=== PATIENT | female | born 1945 | race Caucasian/White ===

== ENCOUNTER → 2017-03-20 | Outpatient (CLI) | payer OTHER | LOC: FIMAGING 09:50 | PROVIDERS: ATTEND Physical Medicine & Rehabilitation | DX: M54.12 Radiculopathy, cervical region (principal); M50.30 Other cervical disc degeneration, unspecified cervical region; M48.02 Spinal stenosis, cervical region; G95.20 Unspecified cord compression; M25.78 Osteophyte, vertebrae ==

== ENCOUNTER → 2017-03-31 | Outpatient (CLI) | payer OTHER | LOC: BMCIMAGING 13:30 | PROVIDERS: ATTEND Internal Medicine Endocrinology, Diabetes & Metabolism | DX: Z13.820 Encounter for screening for osteoporosis (principal); M85.89 Other specified disorders of bone density and structure, multiple sites ==

== ENCOUNTER 2017-05-01 13:58 | Observation (INO) | payer OTHER ==
[2017-05-01] MEDS ORDERED: NS 1,000 ML IV ONE ×2 (15:10→15:43)
--- NOTE | 2017-05-01 15:12 | EDPHY ---
H & P Time Seen by Provider: 05/01/17 14:51 HPI/ROS: CHIEF COMPLAINT: Abdominal pain and diarrhea HISTORY OF PRESENT ILLNESS: Patient was doing well until she woke up at 4:00 a.m. to let the dog out. She developed gas pains and felt sweaty and hot and shortly after developed abdominal pain felt like she was going to be "ripped apart "and had multiple episodes of diarrhea starting at 6:00 a.m.. At 1st it was yellow and light brown and then go more frequent and more severe and she was ended up lying on the floor in the bathroom. Mid morning it started to get bloody and about 30 min prior to my evaluation she had another just completely bloody bowel movement. REVIEW OF SYSTEMS: Eye: no change in vision ENT: no sore throat Cardiac: no chest pain or syncope Pulmonary: no cough or SOB Abdomen: HPI, no abdominal pain now. Musculoskeletal: no back pain Skin: no rash Neuro: no headache Constitutional: no fever : no urinary symptoms A comprehensive 10 point review of systems is otherwise negative aside from elements mentioned in the history of present illness. PAST MEDICAL HISTORY: Breast cancer, hypertension, irritable bowel, sleep apnea. Social history: No alcohol, nonsmoker. No recent thorough travel, no antibiotics. General Appearance: Alert and conversant, cooperative. Eyes: No scleral icterus. ENT, Mouth: dry mucous membranes. Respiratory: Normal respiratory effort, breath sounds equal, lungs are clear to auscultation. Cardiovascular: Regular rate and rhythm. Gastrointestinal: Abdomen is soft and non tender. No external hemorrhoid seen. Neurological: Alert and oriented x3. Normally conversant. Face symmetric, normal movement and sensation in all extremities. Skin: Warm and dry, no rashes. Musculoskeletal: No peripheral edema and no joint swelling. Psychiatric: Not agitated. Emergency Department course/MDM: I-STAT, IV hydration, CT scanning, stool testing. 1544: ascites 100ml, otherwise negative Mao. 1616: Discussed with Addy. Disposition discussed with patient, plan for admit to observation with continued bloody diarrhea in the emergency department in a 71-year-old patient. GI consult if does not resolve or hematocrit drops. Smoking Status: Never smoked Constitutional: Initial Vital Signs Temperature (C) 36.8 C 05/01/17 14:07 Heart Rate 87 05/01/17 14:07 Respiratory Rate 16 05/01/17 14:07 Blood Pressure 123/80 H 05/01/17 14:07 O2 Sat (%) 97 05/01/17 14:07 O2 Delivery Mode Room Air Allergies/Adverse Reactions: codeine Allergy (Intermediate, Verified 05/01/17 17:13) Other-Enter Comments morphine Allergy (Intermediate, Verified 05/01/17 17:13) Itching Sulfa (Sulfonamide Antibiotics) Allergy (Intermediate, Verified 05/01/17 17:13) Other-Enter Comments CONTRAST DYE Allergy (Severe, Uncoded 05/01/17 17:13) Hives Home Medications: Medication Instructions Recorded Amlodipine Besylate [Norvasc] 5 mg PO HS 05/01/17 Aspirin EC [Aspirin EC 325 mg (*)] 650 mg PO DAILY PRN 05/01/17 Aspirin [Aspirin 81mg (*)] 81 mg PO DAILY 05/01/17 Calcium Carbonate [Oyster Shell 500 mg PO DAILY 05/01/17 Calcium 500 mg (*)] Ergocalciferol (Vitamin D2) 2,000 unit PO DAILY 05/01/17 [Vitamin D2] Ibuprofen [Motrin (*)] 400 mg PO Q8 PRN 05/01/17 Inulin/Chromium Picolinate [Fiber 1 each PO DAILY 05/01/17 Gummies] Levothyroxine [Synthroid 25 mcg 25 mcg PO DAILY06 05/01/17 (*)] Lisinopril [Zestril 20 mg (*)] 20 mg PO BID 05/01/17 Meloxicam [Mobic 15 mg] 15 mg PO DAILY 05/01/17 Multivitamins [Multivitamin (*)] 1 each PO DAILY 05/01/17 Nebivolol HCl [Bystolic 5 mg (*)] 5 mg PO DAILY 05/01/17 Omeprazole [Prilosec 20 mg] 20 mg PO DAILY 05/01/17 Simvastatin [Zocor] 40 mg PO HS 05/01/17 Tears/Dextran 70/Hypromellose 1 drop EACHEYE PRN PRN 05/01/17 [Natural Balance Tears (*)] Travoprost Z 0.004% [Travatan Z 1 drops EACHEYE HS 05/01/17 0.004% (*)] Valacyclovir HCl [Valtrex] 1,000 mg PO PRN PRN 05/01/17 Medical Decision Making - Diagnostics EKG Interpretation: 12-lead EKG interpreted by me; official reading is in trace master. My interpretation is sinus rhythm with diffuse nonspecific T-wave flattening rate 68. Imaging Results: Imaging Impressions Abdomen/Pelvis CT 05/01/17 15:29 Impression: 1. Free fluid. This may be exudative from diarrhea. 2. From a noncontrasted standpoint, there is no obvious colitis. No wall thickening, air-fluid level, or distention or obstruction. 3. Renal stones on the right. 4. Gallstones without obstruction. Findings and recommendations discussed with Dr. Son Xavier at 1543 hours on May 01, 2017. Final report concurs with initial preliminary interpretation. Attention: This examination does not use radiographic contrast, and as such, provides only a limited evaluation of the abdomen, pelvis, and retroperitoneum. If there is further clinical suspicion for pathological conditions, a complete CT evaluation of the abdomen and pelvis utilizing intravenous, oral, and rectal contrast should be considered. Differential Diagnosis: Differential considered including but not limited to ischemic colitis, infectious colitis, lower GI bleed, gastroenteritis. - Data Points Laboratory Results: Laboratory Results 05/01/17 15:14 05/01/17 15:14 05/01/17 05/01/17 05/01/17 15:14 15:14 15:11 WBC 10.79 10^3/uL H 10^3/uL (3.80-9.50) RBC 4.63 10^6/uL 10^6/uL (4.18-5.33) Hgb 14.9 g/dL g/dL (12.6-16.3) POC Hgb 14.6 gm/dL gm/dL (12.6-16.3) Hct 40.4 % % (38.0-47.0) POC Hct 43 % % (38-47) MCV 87.3 fL fL (81.5-99.8) MCH 32.2 pg pg (27.9-34.1) MCHC 36.9 g/dL H g/dL (32.4-36.7) RDW 12.9 % % (11.5-15.2) Plt Count 232 10^3/uL 10^3/uL (150-400) MPV 10.3 fL fL (8.7-11.7) Neut % (Auto) 86.9 % H % (39.3-74.2) Lymph % (Auto) 7.5 % L % (15.0-45.0) Marshall % (Auto) 4.7 % % (4.5-13.0) Eos % (Auto) 0.1 % L % (0.6-7.6) Baso % (Auto) 0.4 % % (0.3-1.7) Nucleat RBC Rel Count 0.0 % % (0.0-0.2) Absolute Neuts (auto) 9.38 10^3/uL H 10^3/uL (1.70-6.50) Absolute Lymphs (auto) 0.81 10^3/uL L 10^3/uL (1.00-3.00) Absolute Monos (auto) 0.51 10^3/uL 10^3/uL (0.30-0.80) Absolute Eos (auto) 0.01 10^3/uL L 10^3/uL (0.03-0.40) Absolute Basos (auto) 0.04 10^3/uL 10^3/uL (0.02-0.10) Absolute Nucleated RBC 0.00 10^3/uL 10^3/uL (0-0.01) Immature Gran % 0.4 % % (0.0-1.1) Immature Gran # 0.04 10^3/uL 10^3/uL (0.00-0.10) POC Sodium 142 mEq/L mEq/L (134-144) Sodium 140 mEq/L mEq/L (134-144) POC Potassium 4.1 mEq/L mEq/L (3.3-5.0) Potassium 4.3 mEq/L mEq/L (3.5-5.2) POC Chloride 107 mEq/L mEq/L (97-110) Chloride 105 mEq/L mEq/L (97-110) Carbon Dioxide 21 mEq/l L mEq/l (22-31) Anion Gap 14 mEq/L mEq/L (8-16) POC BUN 27 mg/dL H mg/dL (7-23) BUN 27 mg/dL H mg/dL (7-23) Creatinine 0.9 mg/dL mg/dL (0.6-1.0) POC Creatinine 1.0 mg/dL mg/dL (0.6-1.0) Estimated GFR > 60 Glucose 108 mg/dL H mg/dL (70-100) POC Glucose 111 mg/dL H mg/dL (70-100) Calcium 10.1 mg/dL mg/dL (8.5-10.4) Medications Given: Sodium Chloride (Ns) 1,000 mls @ 100 mls/hr IV CONT YUMIKO Stop: 10/28/17 16:29 Last Admin: 05/01/17 17:00 Dose: 1,000 mls Discontinued Medications Sodium Chloride (Ns) 1,000 mls @ 0 mls/hr IV EDNOW ONE; Wide Open PRN Reason: Protocol Stop: 05/01/17 15:11 Last Admin: 05/01/17 15:11 Dose: 1,000 mls Sodium Chloride (Ns) 1,000 mls @ 0 mls/hr IV EDNOW ONE; Wide Open PRN Reason: Protocol Stop: 05/01/17 15:44 Last Admin: 05/01/17 16:05 Dose: 1,000 mls Point of Care Test Results: 05/01/17 15:11 POC Sodium 142 POC Potassium 4.1 POC Chloride 107 POC BUN 27 H POC Creatinine 1.0 POC Glucose 111 H Departure - Departure Disposition: [facility] Clinical Impression: Bloody diarrhea Condition: Good
[2017-05-01 15:28] LABS: % IMMATURE GRANULYOCYTES 0.4 % (0.0-1.1); ABSOLUTE IMMATURE GRANULOCYTES 0.04 10^3/uL (0.00-0.10); ADD DIFF? NO; ADD MORPH? NO; ADD SCAN? NO; ATYPICAL LYMPHOCYTE FLAG 0 (0-99); FRAGMENT RBC FLAG 0 (0-99); HEMATOCRIT 40.4 % (38.0-47.0); HEMOGLOBIN 14.9 g/dL (12.6-16.3); LEFT SHIFT FLG 0 (0-99); LIPEMIA HEMOLYSIS FLAG 90 (0-99); MEAN CELL HEMOGLOBIN 32.2 pg (27.9-34.1); MEAN CELL HEMOGLOBIN CONCENTR. 36.9 g/dL (32.4-36.7); MEAN CELL VOLUME 87.3 fL (81.5-99.8); MEAN PLATELET VOLUME 10.3 fL (8.7-11.7); PLATELET CLUMPS FLAG 10 (0-99); PLATELET COUNT 232 10^3/uL (150-400); RED BLOOD CELL COUNT 4.63 10^6/uL (4.18-5.33); RED CELL DISTRIBUTION WIDTH 12.9 % (11.5-15.2)
--- NOTE | 2017-05-01 15:31 | CPEKG ---
Heart Rate: 68 RR Interval: 882 P-R Interval: 160 QRSD Interval: 82 QT Interval: 420 QTC Interval: 447 P [place]: -15 QRS [place]: 18 T Wave [place]: -19 EKG Severity - BORDERLINE ECG - EKG Impression: SINUS RHYTHM EKG Impression: BORDERLINE T ABNORMALITIES, DIFFUSE LEADS Electronically Signed By: Son Xavier 01-May-2017 15:38:03
[2017-05-01 15:42] LABS: ANION GAP 14 mEq/L (8-16); CALCIUM 10.1 mg/dL (8.5-10.4); CARBON DIOXIDE 21 mEq/l (22-31); CHLORIDE 105 mEq/L (97-110); CREATININE 0.9 mg/dL (0.6-1.0); GLOMERULAR FILTRATION RATE > 60; GLUCOSE 108 mg/dL (70-100); POTASSIUM 4.3 mEq/L (3.5-5.2); SODIUM 140 mEq/L (134-144)
[2017-05-01] MEDS ORDERED: ACETAMINOPHEN 325 MG TAB PO PRN (16:16)
[2017-05-01] MEDS ORDERED: ONDANSETRON 4 MG/2 ML VIAL IVP PRN (16:16)
[2017-05-01] MEDS ORDERED: ONDANSETRON DISINTEGRATING 4 MG TAB PO PRN (16:16)
[2017-05-01] MEDS ORDERED: NS 1,000 ML IV SCH (16:30)
--- NOTE | 2017-05-01 19:21 | GHP ---
[f rep st] HISTORY AND PHYSICAL DATE OF ADMISSION: 05/01/2017 CHIEF COMPLAINT: Bloody diarrhea. HISTORY OF PRESENT ILLNESS: This is a 71-year-old female with a history of hypertension, hypothyroid ism, who presents with complaints of abdominal pain and bloody stools. The patient reports waking up at 4 o'clock this morning, developing which she thought was gassy abdominal discomfort. She has a h istory of irritable bowel and thought she was simply having symptoms related to that. Pain then prog ressed over the course of the next few hours which resulted in diarrhea that took her to the toilet u ncountable numbers of times. The patient reports that the pain became so severe that she was weak an d unable to get herself back to bed. Therefore, just lay on her bathroom floor until her cam e to help. She said late in the morning, she developed blood in the diarrhea and that is what prompt ed her evaluation in the emergency department. She denies any vomiting. She has had some nausea goran t has not resulted in actual emesis. Has had very little p.o. intake since the initiation of symptom s. Reports being in her normal state of health the day prior. She did eat out at the [employer] but had pancakes and nothing obscure. No other sick contacts are reported. The patient denies ches t pain, shortness of breath, headache, vision changes, rashes, subjective fevers, chills. PAST MEDICAL HISTORY: 1. Irritable bowel syndrome. 2. Hypertension. 3. Hypothyroidism. 4. Osteoporosis. 5. Glaucoma. 6. Anxiety disorder. 7. Patient is a breast cancer survivor. SOCIAL HISTORY: Negative for tobacco. Patient drinks once every 3 months. No illicit drugs or frankie moris. FAMILY HISTORY: Positive for cancers on her father's side. REVIEW OF SYSTEMS: A 10-point review of systems are negative with the exception of that reported in the HPI. PHYSICAL EXAMINATION: VITAL SIGNS: Blood pressure 146/71, heart rate 75, respiratory rate 16, satur ating 99% on room air, 36.7. GENERAL: This is a healthy-appearing middle-aged female in no acute di stress. HEENT: Notable for dry mucous membranes. Eyes are negative for any icterus. CARDIAC: Pat ient is regular rate and rhythm. A quiet systolic murmur is heard best at the left upper sternal bor joycelyn. PULMONARY: Good respiratory effort. Clear to auscultation bilaterally. GASTROINTESTINAL: Po sitive bowel sounds. ABDOMEN: Soft and nontender. MUSCULOSKELETAL: Negative for any lower extremi ty edema. SKIN: Negative for any rashes. NEUROLOGIC: She is alert and oriented x3. PSYCHIATRIC: She is pleasant and cooperative on interview and examination. LABORATORY: White count 10.7, hematocrit 40.4, platelets of 232. Creatinine is 0.9, BUN 27, sodium of 142. CT of the abdomen, which I personally reviewed and interpreted, shows no clear colitis. There is irvin e free fluid in the abdomen. ASSESSMENT AND PLAN: This is a 71-year-old female presenting with bloody diarrhea. 1. Bloody diarrhea. Suspected infectious diarrhea. I have ordered a gastrointestinal pathogen PCR panel. We will admit the patient. Hydrate with normal saline and await stool results to rule out Cl ostridium difficile or other causes that may necessitate antibiotic treatment. We will not initiate antibiotics empirically. We will treat nausea as it occurs and encourage p.o. if she can tolerate it . Suspect the patient will be dischargeable in the morning, hopefully, with analysis of her stool pr ior to disposition. 2. Hypothyroidism. We will continue her Synthroid therapy. 3. Hypertension. Patient is normotensive at presentation. We will continue her home medications in the morning as long as her oral intake is adequate. 4. Glaucoma. Can continue her eye drops per her normal protocol. 5. Prophylaxis: The patient can ambulate. We will place SCDs. 6. Diet: As she tolerates. 7. Disposition: I expect in less than 2 midnights if the patient responds well to supportive care. I have discussed the case with the emergency room physician. Patient will be triaged to the medical- surgical floor for care. /[id number]/MODL
[2017-05-01] MEDS ORDERED: TRAVOPROST Z 0.004% 2.5 ML OPHT.BTL EACHEYE SCH (21:00)
[2017-05-01] MEDS ORDERED: amLODIPine BESYLATE 5 MG TAB PO SCH (21:00)
[2017-05-02 05:05] LABS: % IMMATURE GRANULYOCYTES 0.3 % (0.0-1.1); ABSOLUTE IMMATURE GRANULOCYTES 0.02 10^3/uL (0.00-0.10); ADD DIFF? NO; ADD MORPH? NO; ADD SCAN? NO; ATYPICAL LYMPHOCYTE FLAG 0 (0-99); FRAGMENT RBC FLAG 0 (0-99); HEMATOCRIT 31.2 % (38.0-47.0); HEMOGLOBIN 10.8 g/dL (12.6-16.3); LEFT SHIFT FLG 0 (0-99); LIPEMIA HEMOLYSIS FLAG 90 (0-99); MEAN CELL HEMOGLOBIN 30.6 pg (27.9-34.1); MEAN CELL HEMOGLOBIN CONCENTR. 34.6 g/dL (32.4-36.7); MEAN CELL VOLUME 88.4 fL (81.5-99.8); MEAN PLATELET VOLUME 10.5 fL (8.7-11.7); PLATELET CLUMPS FLAG 0 (0-99); PLATELET COUNT 174 10^3/uL (150-400); RED BLOOD CELL COUNT 3.53 10^6/uL (4.18-5.33); RED CELL DISTRIBUTION WIDTH 12.9 % (11.5-15.2)
[2017-05-02 05:16] LABS: ANION GAP 8 mEq/L (8-16); CALCIUM 8.8 mg/dL (8.5-10.4); CARBON DIOXIDE 23 mEq/l (22-31); CHLORIDE 114 mEq/L (97-110); CREATININE 0.8 mg/dL (0.6-1.0); GLOMERULAR FILTRATION RATE > 60; GLUCOSE 88 mg/dL (70-100); POTASSIUM 4.2 mEq/L (3.5-5.2); SODIUM 145 mEq/L (134-144)
[2017-05-02] MEDS ORDERED: LEVOTHYROXINE 25 MCG TAB PO SCH (06:00)
[2017-05-02 07:36] VITALS: RESP 16
[2017-05-02] MEDS ORDERED: ASPIRIN 81 MG CHEWABLE TAB PO SCH (09:00)
[2017-05-02] MEDS ORDERED: Meloxicam [Mobic 15 Mg] 15 MG PO SCH (09:00)
[2017-05-02] MEDS ORDERED: LISINOPRIL 20 MG TAB PO SCH (09:00)
[2017-05-02] MEDS ORDERED: PANTOPRAZOLE SODIUM 40 MG TAB PO SCH (09:00)
[2017-05-02] MEDS ORDERED: NEBIVOLOL HCL 5 MG TAB PO SCH (09:00)
--- NOTE | 2017-05-02 09:00 | HOSPPROG ---
Hospitalist Progress Note Assessment/Plan: Patient is a 71-year-old female who came to the emergency room with abdominal pain and bloody stools. She has an underlying history of irritable bowel syndrome. Today is my 1st encounter with the patient. Chart reviewed. * bloody diarrhea, colitis -PCR was sent this morning -CT of the abdomen shows some free fluid in the abdomen and also shows no clear colitis -she is having less bouts today. Will make sure that this improves * hypothyroidism -Synthroid * anemia -suspect she was dehydrated when she came in but will need to have this followed up with to make sure she does not trend down * hypertension -stable *Plan: dc home if feeling well later today Subjective: Chantel has had one small bout of diarrhea this morning. Objective: Vital Signs Temp Pulse Resp BP Pulse Ox 36.5 C 68 16 137/87 H 98 05/02/17 07:30 05/02/17 07:30 05/02/17 07:30 05/02/17 07:30 05/02/17 07:30 Laboratory Results 05/02/17 04:35 05/02/17 04:35 05/01/17 05/02/17 05/03/17 05:59 05:59 05:59 Intake Total 2000 Balance 1999 - Physical Exam Constitutional: no apparent distress, other (thin) Eyes: PERRL Ears, Nose, Mouth, Throat: ears appear normal Cardiovascular: regular rate and rhythym Respiratory: no respiratory distress Gastrointestinal: normoactive bowel sounds Skin: warm Musculoskeletal: full muscle strength Neurologic: AAOx3 Psychiatric: interacting appropriately, not anxious ICD10 Worksheet Patient Problems: Problems Problem Status Onset Bloody diarrhea Acute
[2017-05-02 11:12] VITALS: BP 122/63; PULSE 72; TEMP 97.8; O2SAT 99
--- NOTE | 2017-05-02 15:01 | ASMTCMCOM ---
CM Note CM Note Notes: Pt. is a 71-year-old woman admitted with bloody diarrhea. Hx. IBS, breast cancer, and anxiety disorder. Pt. lives w/ . To d/c independently today per RN. Date Signed: 05/02/2017 03:00 PM Electronically Signed By:Yanira Ken LCSW
--- NOTE | 2017-05-02 16:31 | GDS ---
[f rep st] DISCHARGE SUMMARY DISCHARGE DIAGNOSES: 1. Bloody diarrhea that has resolved. 2. Hypothyroidism. 3. Anemia. 4. Hypertension. HISTORY OF PRESENT ILLNESS: Briefly, the patient is a 71-year-old female who came to the emergency r oom with abdominal pain and bloody stools. She has a history of underlying irritable bowel syndrome. She had a CT of the abdomen which showed some free fluid in the abdomen, but also showed no clear c olitis. Her diarrhea resolved today. She had a gastrointestinal pathogen that was performed that sh owed no etiology of her diarrhea. She will be discharged home and follow up with Dr. [facility] setting. HOSPITAL COURSE: 1. Bloody diarrhea. Resolved. She is eating and drinking well. 2. Hypothyroidism. On Synthroid. 3. Anemia. Hemoglobin and hematocrit have decreased since being admitted. We will have her follow up with Dr. Dickerson and get repeat H and H. 4. Hypertension. Stable. DISCHARGE CONDITION: Stable. Blood pressure is 137/87, O2 saturations on room air are 98%, respirat ory rate is 16, pulse is 68, temperature is 36.5 Celsius. MEDICATIONS AT DISCHARGE: Please see the EMR. DISCHARGE INSTRUCTIONS: 1. Follow up with Dr. Dickerson. I left her message in regard to the patient's admission and discharge. 2. If she develops abdominal pain with associated fever, chills, or unable to take adequate intake, to return to the ER. /[id number]/MODL
--- NOTE | 2017-05-02 17:26 | ASDISCHSUM ---
Discharge Information Plan Status:Home with No Needs Medically Cleared to Leave: Discharge Date:05/02/2017 03:09 PM CM D/C Disposition:Home, Routine, Self-Care ADT D/C Disposition:Home, Routine, Self-Care Projected Discharge Date:05/02/2017 03:09 PM Transportation at D/C:Family Discharge Delay Reason: Follow-Up Date:05/02/2017 03:09 PM Discharge Slot: Final Diagnosis: Placement Information Patient Contact Information Contact Name:JOSSIE Relationship: Address:[address] [place]:[facility] Alternate Phone: [facility]/Zip Code:[place] [address] Email: Financial Information Financial Class: Primary Plan Desc:MEDICARE OUTPATIENT Primary Plan Number:[id number] Secondary Plan Desc:[employer]HE[employer] INDEMNITY Secondary Plan Number:[id number] Assessment Information [facility] CM Progress Note CM Note CM Note Notes: Pt. is a 71-year-old woman admitted with bloody diarrhea. Hx. IBS, breast cancer, and anxiety disorder. Pt. lives w/ . To d/c independently today per RN. Date Signed: 05/02/2017 03:00 PM Electronically Signed By:Yanira Ken LCSW Intervention Information
== END 2017-05-02 15:09 | disposition home or self-care (01) ==
LOC: F3E 17:32
PROVIDERS: ADMIT Hospitalist; ATTEND Internal Medicine
DX: R19.7 Diarrhea, unspecified (principal); K92.1 Melena; E03.9 Hypothyroidism, unspecified; D64.9 Anemia, unspecified; I10 Essential (primary) hypertension; Z85.3 Personal history of malignant neoplasm of breast; Z87.19 Personal history of other diseases of the digestive system
CPT/HCPCS: 74176; 93005; 96360; 99285; G0378; 82947-QW

== ENCOUNTER → 2017-05-14 | Outpatient (CLI) | payer OTHER | LOC: FIMAGING 11:37 | PROVIDERS: ATTEND Internal Medicine | DX: Z12.31 Encounter for screening mammogram for malignant neoplasm of breast (principal); Z85.3 Personal history of malignant neoplasm of breast | CPT/HCPCS: G0202 ==

== ENCOUNTER → 2017-06-17 | Outpatient (CLI) | payer OTHER | LOC: BMCIMAGING 11:38 | PROVIDERS: ATTEND Orthopaedic Surgery Hand Surgery | DX: M18.0 Bilateral primary osteoarthritis of first carpometacarpal joints (principal); M79.644 Pain in right finger(s); M79.645 Pain in left finger(s); M25.531 Pain in right wrist; M25.532 Pain in left wrist; R93.6 Abnormal findings on diagnostic imaging of limbs ==

== ENCOUNTER → 2018-06-24 | Outpatient (CLI) | payer OTHER | LOC: FIMAGING 12:53 | PROVIDERS: ATTEND Internal Medicine | DX: Z12.31 Encounter for screening mammogram for malignant neoplasm of breast (principal); Z85.3 Personal history of malignant neoplasm of breast ==

== ENCOUNTER 2018-08-10 11:14 | Emergency (ER) | payer OTHER ==
--- NOTE | 2018-08-10 12:10 | EDPHY ---
H & P Time Seen by Provider: 08/10/18 11:52 HPI/ROS: Chief complaint. Chest pain HPI. 73-year-old female presents emergency department with chest pain that began 2 nights ago. She was getting ready for bed and had pain in her left chest with some shortness of breath. It lasted about 1 min. No injury or unusual activity. Pain continues but very mildly in the left lower chest. It is worse with deep breathing. Her discomfort is not worse with exertion. No fever cough. No nausea vomiting or diarrhea. No unusual leg pain or swelling. No history of heart or diabetes problems. Previous breast cancer with right- sided partial mastectomy ROS 10 systems were reviewed and negative with the exception of the elements mentioned in the history of present illness Past Medical/Surgical History: Breast cancer with partial mastectomy, anxiety, OCD, glaucoma, hypertension, IBS , reflux, TMJ, osteoporosis, sleep apnea Family history uncles with TX and mom with TX Social History: , nonsmoker, no alcohol Smoking Status: Never smoked Physical Exam: General Appearance: Alert pleasant well-developed female mild distress vital signs are stable Eyes: Pupils equal and round no pallor or injection. ENT, Mouth: Mucous membranes are moist. Respiratory: There are no retractions, lungs are clear to auscultation. Cardiovascular: Regular rate and rhythm. Gastrointestinal: Abdomen is soft and nontender, no masses, bowel sounds normal. Neurological: Awake and alert, sensory and motor exams grossly normal. Skin: Warm and dry, no rashes. Musculoskeletal: Neck is supple nontender. Extremities symmetrical, full range of motion. Psychiatric: Patient is oriented X 3, there is no agitation. Constitutional: Initial Vital Signs Temperature (C) 36.3 C 08/10/18 11:20 Heart Rate 93 08/10/18 11:20 Respiratory Rate 16 08/10/18 11:20 Blood Pressure 127/71 H 08/10/18 11:20 O2 Sat (%) 100 08/10/18 11:20 O2 Delivery Mode Room Air Allergies/Adverse Reactions: codeine Allergy (Intermediate, Verified 08/10/18 11:20) Other-Enter Comments morphine Allergy (Intermediate, Verified 08/10/18 11:20) Itching Sulfa (Sulfonamide Antibiotics) Allergy (Intermediate, Verified 08/10/18 11:20) Other-Enter Comments CONTRAST DYE Allergy (Severe, Uncoded 05/01/17 17:13) Hives Home Medications: Medication Instructions Recorded Amlodipine Besylate [Norvasc] 5 mg PO HS 05/01/17 Aspirin EC [Aspirin EC 325 mg (*)] 650 mg PO DAILY PRN 05/01/17 Aspirin [Aspirin 81mg (*)] 81 mg PO DAILY 05/01/17 Calcium Carbonate [Oyster Shell 500 mg PO DAILY 05/01/17 Calcium 500 mg (*)] Ergocalciferol (Vitamin D2) 2,000 unit PO DAILY 05/01/17 [Vitamin D2] Ibuprofen [Motrin (*)] 400 mg PO Q8 PRN 05/01/17 Inulin/Chromium Picolinate [Fiber 1 each PO DAILY 05/01/17 Gummies] Levothyroxine [Synthroid 25 mcg 25 mcg PO DAILY06 05/01/17 (*)] Lisinopril [Zestril 20 mg (*)] 20 mg PO BID 05/01/17 Meloxicam [Mobic 15 mg] 15 mg PO DAILY 05/01/17 Multivitamins [Multivitamin (*)] 1 each PO DAILY 05/01/17 Nebivolol HCl [Bystolic 5 mg (*)] 5 mg PO DAILY 05/01/17 Omeprazole [Prilosec 20 mg] 20 mg PO DAILY 05/01/17 Simvastatin [Zocor] 40 mg PO HS 05/01/17 Tears/Dextran 70/Hypromellose 1 drop EACHEYE PRN PRN 05/01/17 [Natural Balance Tears (*)] Travoprost Z 0.004% [Travatan Z 1 drops EACHEYE HS 05/01/17 0.004% (*)] Valacyclovir HCl [Valtrex] 1,000 mg PO PRN PRN 05/01/17 Medical Decision Making - Diagnostics EKG Interpretation: EKG interpreted by me shows normal sinus rhythm normal interval and axis. QRS is normal though shows LVH by voltage. No significant ST elevation or depression. Occasional PAC. Rate is 69 Imaging Results: Imaging Impressions Chest X-Ray 08/10/18 11:58 Impression: Negative. Chest/Thorax CTA 08/10/18 12:32 Impression: 1. No evidence of thrombopulmonary embolic disease. 2. Trace left effusion and minimal and left basilar atelectasis. 3. No fracture or bone lesion. 4. Right nephrolithiasis. Findings discussed with Emergency Department physician, Adama Connors on 2018, 14:18. Chest x-ray interpreted by me is normal CT chest due to pain with deep breathing and elevated D-dimer shows no evidence of pulmonary embolus. Trace left pleural effusion. Procedures: IV normal saline Patient has contrast allergy. She is pretreated with Benadryl and Solu-Medrol and a L of saline prior to chest CT. ED Course/Re-evaluation: Re-evaluation at 2:30 p.m.. Patient and I discussed imaging and lab results. Patient is offered admission but would prefer to be worked up as an outpatient. Risks and benefits of this are discussed Differential Diagnosis: 2 day history left-sided chest discomfort with normal workup. This could be musculoskeletal. No evidence for PE or acute coronary syndrome - Data Points Laboratory Results: Laboratory Results 08/10/18 11:30 08/10/18 11:30 08/10/18 08/10/18 08/10/18 11:39 11:30 11:30 WBC RBC Hgb Hct MCV MCH MCHC RDW Plt Count MPV Neut % (Auto) Lymph % (Auto) Meriwether % (Auto) Eos % (Auto) Baso % (Auto) Nucleat RBC Rel Count Absolute Neuts (auto) Absolute Lymphs (auto) Absolute Monos (auto) Absolute Eos (auto) Absolute Basos (auto) Absolute Nucleated RBC Immature Gran % Immature Gran # D-Dimer 0.75 ug/mLFEU H ug/mLFEU (0.00-0.50) Sodium 138 mEq/L mEq/L (135-145) Potassium 3.6 mEq/L mEq/L (3.5-5.2) Chloride 103 mEq/L mEq/L (97-110) Carbon Dioxide 25 mEq/l mEq/l (22-31) Anion Gap 10 mEq/L mEq/L (6-14) BUN 15 mg/dL mg/dL (7-23) Creatinine 0.8 mg/dL mg/dL (0.6-1.0) Estimated GFR > 60 Glucose 87 mg/dL mg/dL (70-100) Calcium 9.3 mg/dL mg/dL (8.5-10.4) POC Troponin I 0.01 ng/mL ng/mL (0.00-0.08) 08/10/18 11:30 WBC 7.83 10^3/uL 10^3/uL (3.80-9.50) RBC 4.22 10^6/uL 10^6/uL (4.18-5.33) Hgb 12.8 g/dL g/dL (12.6-16.3) Hct 38.3 % % (38.0-47.0) MCV 90.8 fL fL (81.5-99.8) MCH 30.3 pg pg (27.9-34.1) MCHC 33.4 g/dL g/dL (32.4-36.7) RDW 12.5 % % (11.5-15.2) Plt Count 248 10^3/uL 10^3/uL (150-400) MPV 10.0 fL fL (8.7-11.7) Neut % (Auto) 70.8 % % (39.3-74.2) Lymph % (Auto) 18.4 % % (15.0-45.0) Meriwether % (Auto) 8.6 % % (4.5-13.0) Eos % (Auto) 0.9 % % (0.6-7.6) Baso % (Auto) 0.9 % % (0.3-1.7) Nucleat RBC Rel Count 0.0 % % (0.0-0.2) Absolute Neuts (auto) 5.55 10^3/uL 10^3/uL (1.70-6.50) Absolute Lymphs (auto) 1.44 10^3/uL 10^3/uL (1.00-3.00) Absolute Monos (auto) 0.67 10^3/uL 10^3/uL (0.30-0.80) Absolute Eos (auto) 0.07 10^3/uL 10^3/uL (0.03-0.40) Absolute Basos (auto) 0.07 10^3/uL 10^3/uL (0.02-0.10) Absolute Nucleated RBC 0.00 10^3/uL 10^3/uL (0-0.01) Immature Gran % 0.4 % % (0.0-1.1) Immature Gran # 0.03 10^3/uL 10^3/uL (0.00-0.10) D-Dimer Sodium Potassium Chloride Carbon Dioxide Anion Gap BUN Creatinine Estimated GFR Glucose Calcium POC Troponin I Medications Given: Discontinued Medications Diphenhydramine HCl (Benadryl Injection) 25 mg IVP EDNOW ONE Stop: 08/10/18 12:32 Last Admin: 08/10/18 12:43 Dose: 25 mg Sodium Chloride (Ns) 1,000 mls @ 0 mls/hr IV ONCE ONE; Wide Open PRN Reason: Protocol Stop: 08/10/18 12:32 Last Admin: 08/10/18 12:42 Dose: 1,000 mls Methylprednisolone Sodium Succinate (Solu-Medrol) 125 mg IVP EDNOW ONE Stop: 08/10/18 12:32 Last Admin: 08/10/18 12:43 Dose: 125 mg Point of Care Test Results: Chemistry 08/10/18 11:39 POC Troponin I 0.01 ng/mL ng/mL (0.00-0.08) Departure - Departure Disposition: Home, Routine, Self-Care Clinical Impression: Chest pain Condition: Good Instructions: Chest Pain (ED) Additional Instructions: Easy activity next 1-2 days. Return for worsening chest discomfort or trouble breathing. Call Cardiology today to arrange follow-up evaluation. Referrals: Nori Dickerson MD [Primary Care Provider] - As per Instructions Rachelle Schaffer MD [Medical Doctor] - 2-3 days, call for appt.
[2018-08-10 12:12] LABS: PLATELET COUNT 248 10^3/uL (150-400)
[2018-08-10] MEDS ORDERED: methylPREDNISolone SOD SUCC 125 MG/2 ML VIAL IVP ONE (12:31)
[2018-08-10] MEDS ORDERED: NS 1,000 ML IV ONE (12:31)
[2018-08-10] MEDS ORDERED: IOPAMIDOL (ISOVUE 370) 100 ML BTL IV ONE (13:34)
[2018-08-10 14:05] VITALS: BP 146/77
--- NOTE | 2018-08-10 15:08 | CPEKG ---
Test Reason : OPEN Blood Pressure : / mmHG Vent. Rate : 069 BPM Atrial Rate : 069 BPM P-R Int : 157 ms QRS Dur : 088 ms QT Int : 422 ms P-R-T Axes : 009 007 010 degrees QTc Int : 452 ms Sinus rhythm Atrial premature complexes Left ventricular hypertrophy Confirmed by Adama Connors ([id number]) on 08/10/2018 3:08:27 PM Referred By: PHYSICIAN ED Confirmed By:Adama Connors
== END 2018-08-10 14:45 | disposition home or self-care (01) ==
DX: R07.9 Chest pain, unspecified (principal); I10 Essential (primary) hypertension; E86.9 Volume depletion, unspecified; Z85.3 Personal history of malignant neoplasm of breast
CPT/HCPCS: 71045; 71275; 93005; 96361; 96374; 96375; 99285; J1200; J2930; Q9967; 84484-ER

== ENCOUNTER → 2018-08-19 | Outpatient (CLI) | payer OTHER | LOC: FIMAGING 09:31 | PROVIDERS: ATTEND Urology | DX: N28.1 Cyst of kidney, acquired (principal); D30.01 Benign neoplasm of right kidney; N20.0 Calculus of kidney ==

== ENCOUNTER → 2018-09-16 | Outpatient (CLI) | payer OTHER ==
[~2018-09-16] MED LIST: FAMOTIDINE 20 MG/NACL 50 ML IV ONE; IOPAMIDOL (ISOVUE-300) 100 ML BTL ONE; [UNRECOGNIZED DRUG - REMARK] MISC SCH; methylPREDNISolone SOD SUCC 125 MG/2 ML VIAL IVP ONE; methylPREDNISolone SOD SUCC 125 MG/2 ML VIAL ONE
== END ==
LOC: FIMAGING 11:27
PROVIDERS: ATTEND Urology
DX: N28.89 Other specified disorders of kidney and ureter (principal); N28.1 Cyst of kidney, acquired
CPT/HCPCS: 74178; J1200; J2930; Q9967

== ENCOUNTER → 2018-09-22 | Outpatient (CLI) | payer OTHER | LOC: BHFA 13:15 | PROVIDERS: ATTEND Internal Medicine Cardiovascular Disease | DX: R07.9 Chest pain, unspecified (principal); R94.31 Abnormal electrocardiogram [ECG] [EKG] | CPT/HCPCS: 78452; 93017; 93306; A9500 ==

== ENCOUNTER → 2018-10-20 | Outpatient (CLI) | payer OTHER | LOC: FIMAGING 15:41 ==

== ENCOUNTER 2018-11-22 09:26 | Day surgery (SDC) | payer OTHER | END 2018-11-22 15:53 | disposition home or self-care (01) | LOC: FIMAGING 09:26 ==